=== PATIENT | male | born 1980 | race Caucasian/White ===

== ENCOUNTER 2019-02-17 11:50 | Emergency (ER) | payer SELFPAY ==
[2019-02-17 12:00] VITALS: RESP 18; TEMP 98
[2019-02-17] MEDS ORDERED: Sodium Chloride 0.9% 1,000 ML IV STA (12:10)
--- NOTE | 2019-02-17 12:15 | ED PDOC ---
Arrival/HPI - General Chief Complaint: Abdominal Pain Time Seen by Provider: 02/17/19 12:11 Historian: Patient - History of Present Illness Narrative History of Present Illness (Text): 02/17/19 12:11 39 y/o male, no significant pmh, nkda, c/o woke up with left sided abdominal pain which he feels nausea but no vomiting. Pt. stated that he has no chest pain or shortness of breath, no night sweat, no dizziness, no numbness or ti ngling, no change in vision, no diarrhea, no dizziness, no other medical or psychological complaints. Past Medical History - Provider Review Nursing Documentation Reviewed: Yes - Infectious Disease Hx of Infectious Diseases: None - Genitourinary/Gynecological Other/Comment: kidney stones - Psychiatric Hx Substance Use: No - Surgical History Other/Comment: left foot sx-2018 - Anesthesia Hx Anesthesia: Yes Hx Anesthesia Reactions: No Hx Malignant Hyperthermia: No Family/Social History - Physician Review Nursing Documentation Reviewed: Yes Family/Social History: Unknown Family HX Smoking Status: Light Smoker < 10 Cigarettes Daily Hx Alcohol Use: Yes Frequency of alcohol use: Socially Hx Substance Use: No Allergies/Home Meds Allergies/Adverse Reactions: Allergies No Known Allergies Allergy (Verified 02/17/19 12:01) Home Medications: Home Meds Medication Instructions Recorded Confirmed Docusate Sodium [Stool Softener] 100 mg PO DAILY 02/17/19 02/17/19 Review of Systems - Review of Systems Constitutional: absent: Fatigue, Fevers Eyes: absent: Vision Changes ENT: absent: Hearing Changes Respiratory: absent: SOB, Cough Cardiovascular: absent: Chest Pain Gastrointestinal: Abdominal Pain, Nausea. absent: Diarrhea, Vomiting Musculoskeletal: absent: Arthralgias, Back Pain Skin: absent: Rash, Pruritis Neurological: absent: Headache, Dizziness Psychiatric: absent: Anxiety, Depression, Suicidal Ideation Physical Exam Vital Signs Reviewed: Yes Vital Signs Temp Pulse Resp BP Pulse Ox 02/17/19 11:53 98 F 77 18 103/71 97 Temperature: Afebrile Blood Pressure: Normal Pulse: Regular Respiratory Rate: Normal Appearance: Positive for: Well-Appearing, Non-Toxic, Comfortable Pain Distress: Mild Mental Status: Positive for: Alert and Oriented X 3 - Systems Exam Head: Present: Atraumatic, Normocephalic Pupils: Present: PERRL Extroacular Muscles: Present: EOMI Conjunctiva: Present: Normal Mouth: Present: Moist Mucous Membranes Neck: Present: Normal Range of Motion Respiratory/Chest: Present: Clear to Auscultation, Good Air Exchange. No: Respiratory Distress, Accessory Muscle Use Cardiovascular: Present: Regular Rate and Rhythm, Normal S1, S2. No: Murmurs Abdomen: Present: Tenderness (Lt. sided abdomen), Normal Bowel Sounds. No: Distention, Peritoneal Signs, Rebound, Guarding, McBurney's Point Tender, Hernias, Feeding Tubes Back: Present: Normal Inspection. No: CVA Tenderness, Midline Tenderness, Paraspinal Tenderness, Pain with Leg Raise, Decubitus Ulcer Upper Extremity: Present: Normal Inspection, Normal ROM, NORMAL PULSES, Neurovascularly Intact, Capillary Refill < 2s. No: Cyanosis, Edema, Tenderness, Swelling, Deformity Lower Extremity: Present: Normal Inspection, NORMAL PULSES, Normal ROM, Capillary Refill < 2 s. No: Edema, Tenderness, Swelling, Deformity Neurological: Present: GCS=15, CN II-XII Intact, Speech Normal, Motor Func Grossly Intact, Normal Cerebellar Funct, Gait Normal, Memory Normal Skin: Present: Warm, Dry, Normal Color. No: Rashes Psychiatric: Present: Alert, Oriented x 3, Normal Insight, Normal Concentration Medical Decision Making ED Course and Treatment: 02/17/19 12:14 -labs -CT abdomen and pelvis -IVF/pepcid/zofran -Observe and reassess 02/17/19 15:57 -CT abdomen and pelvis show Hepatomegaly. Mild fatty hepatic infiltration. Borderline splenomegaly. There are 2 tiny nonobstructing calcifications seen lower pole collecting system left kidney. Probable mildly hyperdense cyst midpole collecting system left kidney. Appendix is not positively identified on this exam however no inflammatory changes right lower quadrant of the abdomen. Clinical correlation with history is recommended. Urinary bladder incompletely distended which in part accounts for mild wall thickening; muscular hypertrophy may contribute. Correlation with urinalysis recommended to exclude cystitis. Scattered small mesenteric lymph nodes; rule out mild mesenteric adenitis -Labs are nonsignificant -UA show no UTI -Trop is negative -Pt. has no rt. lower quadrant pain and no RLQ tenderness, discussed about the results, advised outpatient urologist and GI follow up, return to the ER for any new or worsening signs or symptoms. -Pt. has no pain now, will discharge home. -Discharge home with augmentin, motrin, zofran, pepcid, follow up with your own pmd and GI/urologist within 2 days, return to the ER for any new or worsening signs or symptoms. - RAD Interpretation Radiology Orders: 02/17/19 12:10 ABD & PELVIS IV CONTRAST ONLY [CT] Stat Date of service: 02/17/2019 PROCEDURE: CT Abdomen and Pelvis with Oral contrast. HISTORY: Lower abdominal pain; questionable constipation, ? Diverticulitis. COMPARISON: No prior. TECHNIQUE: Contiguous axial images of the abdomen and pelvis performed following intravenous injection of approximately 100 cc Omnipaque 350 contrast material. Additional 2D sagittal and coronal reformats generated. Radiation dose: Total exam DLP = 860.83 mGy-cm. This CT exam was performed using one or more of the following dose reduction techniques: Automated exposure control, adjustment of the mA and/or kV according to patient size, and/or use of iterative reconstruction technique. FINDINGS: LOWER THORAX: Heart size is within range of normal. No significant pericardial effusion. There is a small to medium size hiatal hernia. Minor passive/dependent type atelectasis both lung bases. No effusion or basilar pneumothorax there is some minor linear scarring seen in the left lingular region LIVER: Liver is mildly enlarged measuring over 20 cm in CC dimension. Mild diffuse fatty hepatic infiltration. No obvious hepatic mass collection or calcification. Portal and splenic veins opacified. GALLBLADDER AND BILE DUCTS: Gallbladder is physiologically distended. No evidence of intraluminal gallbladder calculi. PANCREAS: Unremarkable. No mass. No ductal dilatation. SPLEEN: Spleen is upper limits of normal--borderline enlarged. No obvious hepatic masses collections or calcifications ADRENALS: Slightly nodular appearing right adrenal gland. KIDNEYS AND URETERS: Kidneys demonstrate symmetric nephrograms.. There is a small approximately 3.6 mm slightly linear calcific density within the lower pole collecting system left kidney with a 2nd curvilinear calcific density slightly more inferiorly located in the lower pole as well. No evidence hydronephrosis. There is also a 2.4 x 2.3 cm elliptical shaped low-attenuation focus midpole collecting system as well most likely representing a cyst with Hounsfield units in the mid upper teens. BLADDER: Urinary bladder incompletely distended which presumably in part accounts for thick-walled appearance however muscular hypertrophy may contribute. Correlation with urinalysis recommended to exclude cystitis. REPRODUCTIVE: Prostate gland measures approximately 4.5 cm in transverse dimension. APPENDIX: Appendix is not positively identified however no obvious inflammatory changes right lower quadrant of the abdomen BOWEL: Evaluation of the bowel is somewhat limited due to the lack of oral contrast material. The stomach is incompletely distended with slight thick-walled appearance. Visualized loops of small bowel exhibit normal contour and caliber. No evidence of acute mechanical small bowel obstruction. Large bowel appears grossly unremarkable with no definitive abnormal mural wall thickening. PERITONEUM: Unremarkable. No fluid collection. No free air. Small fat containing right inguinal hernia. Small fat containing umbilical hernia. LYMPH NODES: There are scattered relatively small mesenteric lymph nodes. Rule out mesenteric adenitis VASCULATURE: Unremarkable. No aortic aneurysm. No aortic atherosclerotic calcification or mural plaque present. BONES: Minor multilevel degenerative spondylosis of the lower thoracic and lumbar spine OTHER FINDINGS: None. IMPRESSION: Hepatomegaly. Mild fatty hepatic infiltration. Borderline splenomegaly. There are 2 tiny nonobstructing calcifications seen lower pole collecting system left kidney. Probable mildly hyperdense cyst midpole collecting system left kidney. Appendix is not positively identified on this exam however no inflammatory c hanges right lower quadrant of the abdomen. Clinical correlation with history is recommended Urinary bladder incompletely distended which in part accounts for mild wall thickening; muscular hypertrophy may contribute. Correlation with urinalysis recommended to exclude cystitis. Scattered small mesenteric lymph nodes; rule out mild mesenteric adenitis See above discussion for additional details and findings Optometry Assistant: Radiologist - Medication Orders Current Medication Orders: Famotidine (Pepcid) 20 mg IVP STAT STA Stop: 02/17/19 12:11 Sodium Chloride (Sodium Chloride 0.9%) 1,000 mls @ 999 mls/hr IV .Q1H1M STA Stop: 02/17/19 13:10 Ondansetron HCl (Zofran Inj) 4 mg IVP STAT STA Stop: 02/17/19 12:11 - PA / CHANGE OF ADDRESS CLERK / Resident Statement MD/DO has reviewed & agrees with the documentation as recorded. Disposition/Present on Arrival - Present on Arrival Any Indicators Present on Arrival: No History of DVT/PE: No History of Uncontrolled Diabetes: No Urinary Catheter: No History of Decub. Ulcer: No History Surgical Site Infection Following: None - Disposition Have Diagnosis and Disposition been Completed?: Yes Diagnosis: Mesenteric adenitis, Abdominal pain, Renal stone, Abnormal CT scan Disposition: HOME/ ROUTINE Disposition Time: 16:00 Patient Plan: Discharge Condition: IMPROVED Additional Instructions: -Discharge home with augmentin, motrin, zofran, pepcid, follow up with your own pmd and GI/urologist within 2 days, return to the ER for any new or worsening signs or symptoms. Prescriptions: Amoxicillin/Clavulanate [Augmentin 875 MG-125 MG] 1 tab PO BID #20 tab Famotidine [Pepcid] 20 mg PO BID PRN #14 tab PRN Reason: Other Ibuprofen [Motrin] 600 mg PO QID PRN #30 tab PRN Reason: Other Ondansetron [Zofran] 4 mg PO Q8H PRN #12 tab PRN Reason: Other Referrals: PCP,NO [Primary Care Provider] - Follow up with primary Ravinder Monahan MD [Staff Provider] - Follow up with primary Kirk Gibson MD [Staff Provider] - [place] up [place] primary [facility] [place] - Follow up with primary Forms: [employer] (Pashto), WORK NOTE
[2019-02-17 12:54] LABS: BASO # 0.03 K/mm3 (0.0-2.0); BASO % 0.4 % (0.0-3.0); EOS # 0.1 (0.0-0.7); EOS % 1.7 % (1.5-5.0); HEMOGLOBIN 13.8 g/dL (14.0-18.0); LYMPH # 2.7 (1.2-3.4); LYMPH % 38.3 % (22.0-35.0); MEAN CELL VOLUME 83.8 fl (80.0-105.0); MEAN CORPUSCULAR HGB CONC 32.2 g/dl (31.0-37.0); MEAN PLATELET VOLUME 10.1 fl (7.0-11.0); MONO # 0.4 (0.1-0.6); MONO % 5.9 % (1.0-6.0); PH,URINE 6.5 (4.7-8.0); RBC 5.11 10^6/uL (3.5-6.1); RED CELL DISTRIBUTION WIDTH 13.4 % (11.5-14.5); URINE BILIRUBIN NEGATIVE (NEGATIVE); URINE BLOOD SMALL (NEGATIVE); URINE GLUCOSE (UA) NEGATIVE (NEGATIVE); URINE LEUKOCYTE ESTERASE NEGATIVE Leu/uL (NEGATIVE); URINE PROTEIN TRACE mg/dL (<30 mg/dL); URINE UROBILINOGEN 0.2 E.U./dL (<1 E.U./dL)
[2019-02-17 12:55] LABS: URINE APPEARANCE CLEAR (CLEAR); URINE COLOR YELLOW (YELLOW)
[2019-02-17 13:04] LABS: ALB/GLOB RATIO 1.3 (1.1-1.8); ALT/SGPT 33 U/L (7-56); AST/SGOT 22 U/L (17-59); BLOOD UREA NITROGEN 12 mg/dL (7-21); CALCIUM 8.6 mg/dL (8.4-10.5); GFR NON-AFRICAN AMERICAN > 60; LIPASE 29 U/L (23-300)
[2019-02-17 13:16] LABS: TROPONIN I < 0.01 ng/mL
[2019-02-17] MEDS ORDERED: Iohexol 350 MG/100 ML VIAL ONE (13:20)
--- NOTE | 2019-02-17 15:35 | CT ---
Date of service: 02/17/2019 PROCEDURE: CT Abdomen and Pelvis with Oral contrast. HISTORY: Lower abdominal pain; questionable constipation, ? Diverticulitis. COMPARISON: No prior. TECHNIQUE: Contiguous axial images of the abdomen and pelvis performed following intravenous injection of approximately 100 cc Omnipaque 350 contrast material. Additional 2D sagittal and coronal reformats generated. Radiation dose: Total exam DLP = 860.83 mGy-cm. This CT exam was performed using one or more of the following dose reduction techniques: Automated exposure control, adjustment of the mA and/or kV according to patient size, and/or use of iterative reconstruction technique. FINDINGS: LOWER THORAX: Heart size is within range of normal. No significant pericardial effusion. There is a small to medium size hiatal hernia. Minor passive/dependent type atelectasis both lung bases. No effusion or basilar pneumothorax there is some minor linear scarring seen in the left lingular region LIVER: Liver is mildly enlarged measuring over 20 cm in CC dimension. Mild diffuse fatty hepatic infiltration. No obvious hepatic mass collection or calcification. Portal and splenic veins opacified. GALLBLADDER AND BILE DUCTS: Gallbladder is physiologically distended. No evidence of intraluminal gallbladder calculi. PANCREAS: Unremarkable. No mass. No ductal dilatation. SPLEEN: Spleen is upper limits of normal--borderline enlarged. No obvious hepatic masses collections or calcifications ADRENALS: Slightly nodular appearing right adrenal gland. KIDNEYS AND URETERS: Kidneys demonstrate symmetric nephrograms.. There is a small approximately 3.6 mm slightly linear calcific density within the lower pole collecting system left kidney with a 2nd curvilinear calcific density slightly more inferiorly located in the lower pole as well. No evidence hydronephrosis. There is also a 2.4 x 2.3 cm elliptical shaped low-attenuation focus midpole collecting system as well most likely representing a cyst with Hounsfield units in the mid upper teens. BLADDER: Urinary bladder incompletely distended which presumably in part accounts for thick-walled appearance however muscular hypertrophy may contribute. Correlation with urinalysis recommended to exclude cystitis. REPRODUCTIVE: Prostate gland measures approximately 4.5 cm in transverse dimension. APPENDIX: Appendix is not positively identified however no obvious inflammatory changes right lower quadrant of the abdomen BOWEL: Evaluation of the bowel is somewhat limited due to the lack of oral contrast material. The stomach is incompletely distended with slight thick-walled appearance. Visualized loops of small bowel exhibit normal contour and caliber. No evidence of acute mechanical small bowel obstruction. Large bowel appears grossly unremarkable with no definitive abnormal mural wall thickening. PERITONEUM: Unremarkable. No fluid collection. No free air. Small fat containing right inguinal hernia. Small fat containing umbilical hernia. LYMPH NODES: There are scattered relatively small mesenteric lymph nodes. Rule out mesenteric adenitis VASCULATURE: Unremarkable. No aortic aneurysm. No aortic atherosclerotic calcification or mural plaque present. BONES: Minor multilevel degenerative spondylosis of the lower thoracic and lumbar spine OTHER FINDINGS: None. IMPRESSION: Hepatomegaly. Mild fatty hepatic infiltration. Borderline splenomegaly. There are 2 tiny nonobstructing calcifications seen lower pole collecting system left kidney. Probable mildly hyperdense cyst midpole collecting system left kidney. Appendix is not positively identified on this exam however no inflammatory changes right lower quadrant of the abdomen. Clinical correlation with history is recommended Urinary bladder incompletely distended which in part accounts for mild wall thickening; muscular hypertrophy may contribute. Correlation with urinalysis recommended to exclude cystitis. Scattered small mesenteric lymph nodes; rule out mild mesenteric adenitis See above discussion for additional details and findings
[2019-02-17] MEDS ORDERED: Amoxicillin-Clav 875-125 mg Tab PO STA (15:55)
[2019-02-17 16:33] VITALS: BP 116/69; PULSE 72; O2SAT 99
== END 2019-02-17 16:32 | disposition home or self-care (01) ==
LOC: ED 11:50
DX: I88.0 Nonspecific mesenteric lymphadenitis (principal); N20.0 Calculus of kidney; R93.5 Abnormal findings on diagnostic imaging of other abdominal regions, including retroperitoneum
CPT/HCPCS: 74177; 80053; 81001; 83690; 84484; 85025; 96374; 96375; 99283; J1885; J7030; Q9967

== ENCOUNTER 2019-03-28 10:25 | Emergency (ER) | payer SELFPAY ==
--- NOTE | 2019-03-28 10:37 | ED PDOC ---
Arrival/HPI - General Historian: Patient - History of Present Illness Narrative History of Present Illness (Text): 03/28/19 10:37 39 y/o male, pmh including mesenteric adenitis/renal stone/chronic gastritis, nkda, c/o epigastric pain/nausea/vomiting started this morning. Pt. stated that he has chronic epigastric pain, seen by GI and had endoscopy show gastritis, never follow up with any PCP or GI since, stated that he always come to the hospital when he vomit, from [facility], no chest pain or shortness of breath, no palpitation, no night sweat, no rash, no numbness or tingling, no other medical or psychological complaints. Past Medical History - Provider Review Nursing Documentation Reviewed: Yes - Infectious Disease Hx of Infectious Diseases: None - Genitourinary/Gynecological Other/Comment: kidney stones - Psychiatric Hx Substance Use: No - Surgical History Other/Comment: left foot sx-2018 - Anesthesia Hx Anesthesia: Yes Hx Anesthesia Reactions: No Hx Malignant Hyperthermia: No Family/Social History - Physician Review Nursing Documentation Reviewed: Yes Family/Social History: Unknown Family HX Smoking Status: Light Smoker < 10 Cigarettes Daily Hx Alcohol Use: Yes Hx Substance Use: No Allergies/Home Meds Allergies/Adverse Reactions: Allergies No Known Allergies Allergy (Verified 03/28/19 11:08) Home Medications: Home Meds Medication Instructions Recorded Confirmed Omeprazole 40 mg PO DAILY 03/28/19 03/28/19 Ranitidine HCl [Zantac] 150 mg PO DAILY 03/28/19 03/28/19 Review of Systems - Review of Systems Constitutional: absent: Fatigue, Fevers Eyes: absent: Vision Changes ENT: absent: Hearing Changes Respiratory: absent: SOB, Cough Cardiovascular: absent: Chest Pain Gastrointestinal: Abdominal Pain, Nausea, Vomiting. absent: Diarrhea Musculoskeletal: absent: Arthralgias, Back Pain Skin: absent: Rash, Pruritis Neurological: absent: Headache Psychiatric: absent: Anxiety, Depression, Suicidal Ideation Physical Exam Vital Signs Reviewed: Yes Temperature: Afebrile Blood Pressure: Normal Pulse: Regular Respiratory Rate: Normal Appearance: Positive for: Well-Appearing, Non-Toxic, Comfortable Pain Distress: Moderate Mental Status: Positive for: Alert and Oriented X 3 - Systems Exam Head: Present: Atraumatic, Normocephalic Pupils: Present: PERRL Extroacular Muscles: Present: EOMI Conjunctiva: Present: Normal Mouth: Present: Moist Mucous Membranes Neck: Present: Normal Range of Motion Respiratory/Chest: Present: Clear to Auscultation, Good Air Exchange. No: Respiratory Distress, Accessory Muscle Use Cardiovascular: Present: Regular Rate and Rhythm, Normal S1, S2. No: Murmurs Abdomen: Present: Tenderness (+epigastric tenderness), Normal Bowel Sounds. No: Distention, Peritoneal Signs, Rebound, Guarding, McBurney's Point Tender, R ovsing's Sign Present, Scars Back: Present: Normal Inspection. No: CVA Tenderness Upper Extremity: Present: Normal Inspection. No: Cyanosis, Edema Lower Extremity: Present: Normal Inspection. No: Edema Neurological: Present: GCS=15, CN II-XII Intact, Speech Normal Skin: Present: Warm, Dry, Normal Color. No: Rashes Psychiatric: Present: Alert, Oriented x 3, Normal Insight, Normal Concentration Medical Decision Making ED Course and Treatment: 03/28/19 10:37 -labs -abdominal xray -gallbladder sonogram -IVF/pepcid/zofran -Observe and reassess 03/28/19 13:18 -Abdominal xray ER wet read: constipation with no obstruction -Gallbladder sonogram: no gall stones but Fatty liver. -Labs are non-significant -UA show no UTI -No flank pain, asymptomatic now. -Pt. feels constipated, magnesium citrate ordered. He has ranitidine and prilosec, will rx zofran prn. -Discharge home with magnesium citrate, zofran prn, continue ranitidine or prilosect as needed, follow up with your own pmd and GI within 2 days to work up for any h.pylori, return to the ER for any new or worsening signs or symptoms. - RAD Interpretation Radiology Orders: -Abdominal xray Date of service: 03/28/2019 HISTORY: nausea/vomitin COMPARISON: None available. TECHNIQUE: 2 view obtained. FINDINGS: BOWEL: Normal. No obstruction. No free air. BONES: Normal. OTHER FINDINGS: None. IMPRESSION: No active disease. -------- -Gallbladder sonogram Date of service: 03/28/2019 HISTORY: epigastric pain COMPARISON: None. TECHNIQUE: Sonographic evaluation of the right upper quadrant of the abdomen. FINDINGS: LIVER: Measures cm in length. Heterogeneous echogenicity of the liver parenchyma. No mass. No intrahepatic bile duct dilatation. GALLBLADDER: Unremarkable. No gallstones. COMMON BILE DUCT: Measures mm. No stones. No dilatation. PANCREAS: Unremarkable as visualized. No mass. No ductal dilatation. RIGHT KIDNEY: Measures cm in length. Normal echogenicity. No calculus, mass, or hydronephrosis. AORTA: No aneurysmal dilatation. IVC: Unremarkable. OTHER FINDINGS: None . IMPRESSION: Fatty liver. Electronic Security Technician: Radiologist - PA / SENIOR ELECTRONICS ENGINEER / Resident Statement / has reviewed & agrees with the documentation as recorded. Disposition/Present on Arrival - Present on Arrival Any Indicators Present on Arrival: No History of DVT/PE: No History of Uncontrolled Diabetes: No Urinary Catheter: No History of Decub. Ulcer: No History Surgical Site Infection Following: None - Disposition Have Diagnosis and Disposition been Completed?: Yes Diagnosis: Gastritis, Constipation, Vomiting Disposition: HOME/ ROUTINE Disposition Time: 11:17 Patient Plan: Discharge Condition: IMPROVED Additional Instructions: -Discharge home with magnesium citrate, zofran prn, continue ranitidine or prilosect as needed, follow up with your own pmd and GI within 2 days to work up for any h.pylori, return to the ER for any new or worsening signs or symptoms. Prescriptions: Ondansetron ODT [Zofran ODT] 4 mg PO TID PRN #9 odt PRN Reason: Other Referrals: Yunier Saez MD [Medical Doctor] - Follow up with primary Forms: WORK NOTE
[2019-03-28] MEDS ORDERED: Sodium Chloride 0.9% 1,000 ML IV STA (11:12)
--- NOTE | 2019-03-28 12:04 | US ---
Date of service: 03/28/2019 HISTORY: epigastric pain COMPARISON: None. TECHNIQUE: Sonographic evaluation of the right upper quadrant of the abdomen. FINDINGS: LIVER: Measures cm in length. Heterogeneous echogenicity of the liver parenchyma. No mass. No intrahepatic bile duct dilatation. GALLBLADDER: Unremarkable. No gallstones. COMMON BILE DUCT: Measures mm. No stones. No dilatation. PANCREAS: Unremarkable as visualized. No mass. No ductal dilatation. RIGHT KIDNEY: Measures cm in length. Normal echogenicity. No calculus, mass, or hydronephrosis. AORTA: No aneurysmal dilatation. IVC: Unremarkable. OTHER FINDINGS: None . IMPRESSION: Fatty liver.
[2019-03-28 12:37] LABS: BASO # 0.06 K/mm3 (0.0-2.0); BASO % 0.8 % (0.0-3.0); EOS # 0.1 (0.0-0.7); EOS % 1.6 % (1.5-5.0); HEMOGLOBIN 14.5 g/dL (14.0-18.0); LYMPH # 2.5 (1.2-3.4); LYMPH % 32.2 % (22.0-35.0); MEAN CELL VOLUME 83.4 fl (80.0-105.0); MEAN CORPUSCULAR HEMOGLOBIN 27.1 pg (25.0-35.0); MEAN CORPUSCULAR HGB CONC 32.4 g/dl (31.0-37.0); MEAN PLATELET VOLUME 10.2 fl (7.0-11.0); MONO # 0.4 (0.1-0.6); RBC 5.36 10^6/uL (3.5-6.1); RED CELL DISTRIBUTION WIDTH 13.4 % (11.5-14.5); WHITE BLOOD COUNT 7.7 10^3/uL (4.5-11.0)
[2019-03-28 12:40] LABS: URINE APPEARANCE CLEAR (CLEAR); URINE BILIRUBIN NEGATIVE (NEGATIVE); URINE BLOOD TRACE-LYSED (NEGATIVE); URINE COLOR YELLOW (YELLOW); URINE GLUCOSE (UA) NEGATIVE (NEGATIVE); URINE LEUKOCYTE ESTERASE NEGATIVE Leu/uL (NEGATIVE); URINE PROTEIN TRACE mg/dL (<30 mg/dL); URINE UROBILINOGEN 0.2 E.U./dL (<1 E.U./dL)
[2019-03-28 12:49] LABS: ALB/GLOB RATIO 1.4 (1.1-1.8); ALBUMIN 4.5 g/dL (3.0-4.8); ALT/SGPT 53 U/L (7-56); AST/SGOT 30 U/L (17-59); BLOOD UREA NITROGEN 13 mg/dL (7-21); CALCIUM 9.2 mg/dL (8.4-10.5); GFR NON-AFRICAN AMERICAN > 60; LIPASE 36 U/L (23-300)
[2019-03-28 12:51] LABS: URINE BACTERIA MOD /hpf; URINE EPITHELIAL CELLS 0 - 2 /hpf (0-5); URINE WBC 0 - 2 /hpf (0-6)
[2019-03-28 13:00] LABS: TROPONIN I < 0.01 ng/mL
[2019-03-28] MEDS ORDERED: Magnesium Citrate Oral SOL (300 ml) PO ONE (13:17)
[2019-03-28 13:31] VITALS: BP 129/74; PULSE 70; RESP 19; TEMP 97.9; O2SAT 99
--- NOTE | 2019-03-28 15:21 | RAD ---
Date of service: 03/28/2019 HISTORY: nausea/vomitin COMPARISON: None available. TECHNIQUE: 2 view obtained. FINDINGS: BOWEL: Normal. No obstruction. No free air. BONES: Normal. OTHER FINDINGS: None. IMPRESSION: No active disease.
== END 2019-03-28 13:30 | disposition home or self-care (01) ==
LOC: ED 10:25
DX: K59.00 Constipation, unspecified (principal); K29.70 Gastritis, unspecified, without bleeding; R11.10 Vomiting, unspecified; F17.210 Nicotine dependence, cigarettes, uncomplicated
CPT/HCPCS: 74019; 76705; 80053; 81001; 83690; 83735; 84484; 85025; 96374; 96375; 99283; J2405; J7030